=== PATIENT | male | born 1965 | race Asian ===

== ENCOUNTER 2023-02-26 16:20 | Emergency (ER) | payer BC, SELFPAY ==
--- NOTE | ~2023-02-26 | XR_ITS ---
XR toe 1st LT min 2V DATE: 02/26/2023 16:54 INDICATION: Injury 2 days ago with subsequent pain and bruising of the left first digit TECHNIQUE: 4 views COMPARISON: None FINDINGS: A nondisplaced linear intra-articular fracture of the medial base of the distal phalanx of the first digit. No other fracture or dislocation is detected. Joint spaces are preserved. IMPRESSION: Nondisplaced linear intra-articular fracture of the medial base of the distal phalanx of the great toe Reviewed, dictated and finalized at location A. NEL INSTALLER
--- NOTE | ~2023-02-26 | XR_ITS ---
XR chest 2V DATE: 02/26/2023 16:54 INDICATION: Cough for 8 days. Asthma. TECHNIQUE: 2 views COMPARISON: None FINDINGS: Normal heart size. No hilar or mediastinal enlargement. The lungs are normally inflated, without infiltrate or consolidation. No pleural effusion or pulmonary vascular congestion or pneumothorax is detected. IMPRESSION: Negative Reviewed, dictated and finalized at location A. R FINISHER IMPRESSION: Negative
--- NOTE | 2023-02-26 16:33 | ED.GENADULT ---
HPI - General Adult General Chief complaint: Upper Respiratory Infection Stated complaint: Cough, Asthma, Fainting, Left Foot Injury Time Seen by Provider: 02/26/23 16:33 Source: patient, RN notes reviewed and old records reviewed Mode of arrival: ambulatory Limitations: no limitations History of Present Illness HPI narrative: 57 year old male presents to the [facility] with complaints of cough, reports history of asthma. Had seen primary care provider 8 days ago, was prescribed amoxicillin, albuterol, Tessalon Perles and hydrocodone for his cough. States he is not any better. Patient also states that he has a bruised toe. States when he passed out on Wednesday he hurt it somehow not sure of the mechanism of injury reports that on Wednesday and again on Wednesday he was coughing so much, face turned red and he ?passed out. ? Wednesday they had called EMS, he declined transfer to the hospital for further evaluation. During both episodes and today patient denies any dizziness, headache, chest pain. States that he hold his breath when he coughs because he does not like coughing. Patient denies any fevers. Denies any history of COPD, congestive heart failure, heart issues Onset (ago): week(s) (1-2) Treatments prior to arrival: other (Prescribed medication) Related Data Home Medications Medication Instructions Recorded Confirmed albuterol sulfate 90 mcg/actuation 1 inh inhalation Q46H 02/26/23 02/26/23 aerosol inhaler amoxicillin 875 mg tablet 875 mg PO BID 02/26/23 02/26/23 benzonatate 100 mg capsule 100 mg PO TID 02/26/23 02/26/23 hydrocodone 10 mg-chlorpheniramine 5 ml PO BID 02/26/23 02/26/23 8 mg/5 mL oral susp extend.rel 12hr Allergies Allergy/AdvReac Type Severity Reaction Status Date / Time No Known Allergies Allergy Unknown Verified 02/26/23 16:31 Review of Systems Review of Systems: All systems reviewed & are unremarkable except as noted in HPI and below Constitutional: Constitutional: Reports no additional constitutional complaints Eyes: Eyes: Reports no additional eye complaints ENT: Reports system reviewed and no additional complaints, except as documented Cardiovascular: Cardiovascular: Reports no additional cardiovascular complaints, Denies chest pain and Denies dyspnea Respiratory: Respiratory: Denies chest congestion, Reports cough, Denies dyspnea and Reports wheezing Gastrointestinal: Gastrointestinal: Reports no additional gastrointestinal complaints, Denies abdominal pain, Denies nausea and Denies vomiting Musculoskeletal: Musculoskeletal: Reports as per HPI Integumentary/Breasts: Skin/Breast: Reports system reviewed and no additional complaints, except as docu Neurologic: Reports system reviewed and no additional complaints, except as documented Psychiatric: Psychiatric: Reports no additional psychiatric complaints Allergic/Immunologic: Allergic/Immunologic: Reports no additional allergic/immunologic complaints PMFSH Family History Family History Father Acute myocardial infarction Mother Patient's mother is in good health Social History Social History Smoking status: Never smoker Second hand tobacco smoke exposure: No Alcohol intake: never Comments At the time of my signature, I reviewed and agree with the nursing past medical, surgical, social, and family history. There is no relevant family history pertinent to the patient complaint. Exam Const: General: cooperative, healthy appearing, comfortable, no acute distress, well developed, alert and well nourished Nutritional Appearance: well nourished Orientation/consciousness: patient oriented x3 Limitations: no limitations HENMT: Head: normal to inspection Ears: hearing grossly normal bilaterally, external ears normal, TM's normal bilaterally, EAC's normal, mastoids normal and no periauricular adenopathy Face/Nose
[2023-02-26 16:34] VITALS: BP 128/77; PULSE 81; RESP 16; TEMP 36.8; O2SAT 96
[2023-02-26] MEDS: IPRATROPIUM BR 0.02% INH SOLN 0.5 MG/2.5 ML VIAL INHALATION (17:23)
[2023-02-26] MEDS: ALBUTEROL SULFATE NEB 2.5 MG/3 ML INH INHALATION (17:23)
== END 2023-02-26 17:50 | disposition home or self-care (01) ==
PROVIDERS: Emergency Provider Nurse Practitioner; PCP Emergency Medicine
DX: S92.424A Nondisplaced fracture of distal phalanx of right great toe, initial encounter for closed fracture (principal); W19.XXXA Unspecified fall, initial encounter; J40 Bronchitis, not specified as acute or chronic; J45.909 Unspecified asthma, uncomplicated
CPT/HCPCS: 71046; 73660; 94640; 99204; G0463